=== PATIENT | male | born 1985 | race Caucasian/White ===

== ENCOUNTER 2019-10-26 13:45 | Emergency (ER) | payer OTHER, SELFPAY ==
[2019-10-26 14:04] VITALS: BP 126/81; PULSE 114; RESP 20; TEMP 36.7; O2SAT 98
--- NOTE | 2019-10-26 14:19 | ED.GENADULT ---
HPI - General Adult General Chief complaint: Upper Respiratory Infection Stated complaint: Ear/Nose/Throat Time Seen by Provider: 10/26/19 14:19 Source: patient and RN notes reviewed Mode of arrival: ambulatory Limitations: no limitations History of Present Illness HPI narrative: 34-year-old male presents with complaints of upper respiratory infection symproms, chills, and dry cough for 8 days. Nasacort, Claritin, and Ibuprofen (last this morning between 08:30/09:00) with no relief. Constant dry cough/intermittent productive cough (green phlegm). History of Asthma. [facility] without relief. Symptoms increased in the last 24 hours with increase facial pressure and congestion and intermittent headache (not the worst of his life). No rhinorrhea. Nasal congestion. Sore throat. Throat pain bilateral. Intermittently with swallowing. No high fevers, drooling, neck or throat swelling. No chest pain, wheezing, or shortness of breath. Exacerbation factors consists of smoke exposure. Denies nausea, vomiting, and abdominal pain. Tolerating liquids well. Some parts of this dictation were generated by voice recognition software and may contain typographical and/or grammatical inaccuracies. Related Data Allergies Allergy/AdvReac Type Severity Reaction Status Date / Time Penicillins Allergy Rash Verified 10/26/19 14:18 Review of Systems Review of Systems: Narrative: CONSTITUTIONAL: Denies fever, sweats. Complains of chills. EYES: Denies visual changes, redness, discharge. ENT: Denies rhinorrhea, otalgia. Complains of congestion, sore throat. CARDIOVASCULAR: Denies chest pain, palpitations, edema. RESPIRATORY: Denies dyspnea, wheezing. Complains of dry cough/intermittent productive cough. GASTROINTESTINAL: Denies abdominal pain, nausea, vomiting, diarrhea. GENITOURINARY: Denies dysuria, hematuria, abnormal discharge. SKIN: Denies rash or itching. MUSCULOSKELETAL: Denies acute back pain, joint pain, or myalgia. NEUROLOGIC: Denies numbness or focal weakness. Complaints of intermittent NIÑO. PSYCHIATRIC: Denies anxiety or depression. [facility] Past Medical History Medical History (Updated 10/27/19 @ 00:00 by Krystal Cortez) Asthma Surgical History Surgical History (Updated 10/29/19 @ 03:36 by ADRI Byers) History of inguinal hernia repair Social History Social History Gender identity (if verbalized by the patient): Male Comments At time of signature, agree with nurse past medical, surgical, social, and family history. There is no relevant family history pertinent to the presenting complaint. Exam Narrative: Exam Narrative: GENERAL: This is a well-nourished, well-developed patient, in no apparent distress. Talks in full sentences and ambulates with steady gait without dyspnea. HEAD: normocephalic, atraumatic. EYES: PERRL. Sclera clear/white. Vision is grossly intact. EARS: External ears normal, auditory canals clear and without drainage, TMs normal without perforation. Hearing grossly intact. NOSE: External nose normal with no obvious nasal discharge, nares with mild redness and enlarged turbinates, clear rhinorrhea. SINUSES: Moderate tenderness upon palpation to frontal sinus. THROAT: Mucous membranes moist, posterior pharynx clear. PND, mild erythema, and tonsils normal. NECK: Neck supple, non-tender without lymphadenopathy, masses or thyromegaly. CARDIOVASCULAR: Regular rate and rhythm without murmurs, gallops, or rubs. RESPIRATORY: Clear to auscultation. Breath sounds equal bilaterally. No wheezes, rales, or rhonchi. Dry cough. GASTROINTESTINAL: Abdomen soft, non-tender, nondistended. Bowel sounds are active. No hepato-splenomegaly, or palpable masses. No guarding. SKIN: warm, intact with no suspicious lesions or rash, good texture and turgor. NEURO: awake, alert, and oriented to person, place and time. T
== END 2019-10-26 14:35 | disposition home or self-care (01) ==
PROVIDERS: Emergency Provider Nurse Practitioner Family
DX: J40 Bronchitis, not specified as acute or chronic (principal); J01.10 Acute frontal sinusitis, unspecified; J45.909 Unspecified asthma, uncomplicated
CPT/HCPCS: 99213; G0463